=== PATIENT | female | born 1980 | race Caucasian/White ===

== ENCOUNTER 2020-10-30 17:52 | Inpatient (IN) | payer BC, OTHER ==
[~2020-10-30] VITALS: Ht 154.9 cm; Wt 65.9 kg
[~2020-10-30 17:52] MED LIST: CYCL-394 PO; HYDR-3965 PO
[2020-10-30] MEDS ORDERED: normal saline 1000ML IV soln IV ONE (18:20)
[2020-10-30] MEDS ORDERED: acetaminophen 325mg tablet PO STA (18:31)
[2020-10-30 18:45] LABS: BASOPHILS % (AUTO) 0.4 % (0-1); EOSINOPHILS % (AUTO) 0 % (0-6); HEMATOCRIT 39.9 % (35.0-45.0); HEMOGLOBIN 13.4 g/dl (12.0-16.0); LYMPHOCYTES # (AUTO) 0.4 X10'3 (1.1-4.8); LYMPHOCYTES % (AUTO) 3.8 % (21-51); MEAN CORPUSCULAR HEMOGLOBIN 29.9 PG (27.0-31.0); MEAN CORPUSCULAR HGB CONC 33.6 g/dL (33.0-36.5); MEAN CORPUSCULAR VOLUME 88.8 FL (78-98); MEAN PLATELET VOLUME 8.5 FL (7.4-10.4); MONOCYTES # (AUTO) 0.4 X10'3 (0-0.9); MONOCYTES % (AUTO) 4.4 % (2-12); NEUTROPHILS # (AUTO) 9.3 X10'3 (1.8-7.7); NEUTROPHILS % (AUTO) 91.4 % (42-75); PLATELET COUNT 214 X10'3 (140-440); RED BLOOD COUNT 4.49 X10'6 (4.20-5.60); RED CELL DISTRIBUTION WIDTH 13.4 % (11.5-14.5); WHITE BLOOD COUNT 10.2 X10'3 (4.5-11.0)
[2020-10-30] MEDS ORDERED: acetaminophen 325mg tablet PO ONE (18:55)
[2020-10-30] MEDS ORDERED: ketorolac tromethamine 15mg/ml inj. IM ONE (18:55)
[2020-10-30 19:00] LABS: ALANINE AMINOTRANSFERASE 21 U/L (12-78); ALBUMIN 3.6 G/DL (3.4-5.0); ALBUMIN/GLOBULIN RATIO 0.8 (1.1-1.5); ALKALINE PHOSPHATASE 74 IU/L (46-116); ANION GAP 10 (8-16); ASPARTATE AMINO TRANSFERASE 14 U/L (10-37); BILIRUBIN,TOTAL 0.3 MG/DL (0.1-1.0); BLOOD UREA NITROGEN 10 MG/DL (7-18); BUN/CREATININE RATIO 11.8 (6.6-38.0); CALCIUM 8.7 MG/DL (8.5-10.1); CHLORIDE 98 MMOL/L (99-107); CREATININE 0.85 MG/DL (0.40-0.90); GLUCOSE 114 MG/DL (70-104); MAGNESIUM 1.7 MG/DL (1.5-2.4); POTASSIUM 3.5 MMOL/L (3.5-5.1); SODIUM 132 MMOL/L (135-145); TOTAL CARBON DIOXIDE 23.8 MMOL/L (24-32); TOTAL PROTEIN 8.2 G/DL (6.4-8.2); eGFR 74 ML/MIN
[2020-10-30] MEDS ORDERED: CefTRIAXone/D5W-Rocephin 1gm 50 ML IV ONE (19:35)
[2020-10-30 20:23] LABS: CLARITY,URINE CLEAR (Clear); COLOR,URINE YELLOW (Yellow); GLUCOSE, URINE NEGATIVE (Neg); KETONES,URINE NEGATIVE (Neg); LEUKOCYTE ESTERASE ,URINE NEGATIVE (Neg); NITRITES, URINE NEGATIVE (Neg); OCCULT BLOOD,URINE TRACE-INTACT (Neg); PROTEIN,URINE NEGATIVE (Neg); UROBILINOGEN,URINE 0.2 E.U/dL (0.2-1.0)
[2020-10-30 20:24] LABS: URINE HCG NEGATIVE (NEG)
[2020-10-30 20:28] LABS: UA COLLECTION TYPE CLN CATCH MIDSTREAM
[2020-10-30 20:29] LABS: BACTERIA,URINE FEW /HPF (Neg); RBC,URINE 0-2 /HPF (0-2); SQUAMOUS EPITHELIAL CELL,UR MODERATE /LPF (FEW); WBC,URINE 0-4 /HPF (0-4)
--- NOTE | 2020-10-30 20:33 | NUR ---
REPORTS MISSING DOSES OF HOME ANTIBIOTIC FOR UTI
--- NOTE | 2020-10-30 21:39 | NUR ---
TOLERATED CHICKEN BROTH WITHOUT VOMITING
[2020-10-30] MEDS: normal saline 1000ml 1,000 ML IV SCH (22:10)
[2020-10-30] MEDS ORDERED: magnesium 2GM in 50ml NS 50 ML IV PRN (22:10)
[2020-10-30] MEDS ORDERED: ondansetron/PF 4mg/2ml inj IV PRN (22:10)
[2020-10-30] MEDS ORDERED: magnesium 4gm in 100ml NS 100 ML IV PRN (22:10)
[2020-10-30] MEDS ORDERED: potassium Cl 20 mEq SR tablet PO PRN ×2 (22:10)
[2020-10-30] MEDS ORDERED: potassium Cl 40MEQ/1/2NS 520ml 520 ML IV PRN ×2 (22:10)
[2020-10-30] MEDS ORDERED: magnesium Cl slow-release 64mg tablet PO PRN (22:10)
[2020-10-30] MEDS ORDERED: NO HOME MEDS (22:37)
--- NOTE | 2020-10-30 23:55 | NUR ---
Patient in room ED 12. I have received report from NEHEMIAH Arrieta and had the opportunity to ask questions and assume patient care.
[2020-10-31] VITALS (8 sets, daily range): BP systolic 96–128; BP diastolic 56–83
[2020-10-31] MEDS: acetaminophen 325mg tablet PO PRN ×3 (00:47→22:06)
--- NOTE | 2020-10-31 01:23 | NUR ---
at pt bedside
[2020-10-31] MEDS ORDERED: Melatonin 3mg tablet PO ONE (02:35)
[2020-10-31] MEDS ORDERED: HYDROcodone/acetaminophen 5mg/325mg tablet PO ONE ×2 (02:35→03:00)
[2020-10-31] MEDS: normal saline 1000ml 1,000 ML IV SCH ×3 (04:50→14:47)
[2020-10-31 05:57] LABS: BASOPHILS % (AUTO) 0.2 % (0-1); EOSINOPHILS % (AUTO) 0.1 % (0-6); HEMOGLOBIN 11.8 g/dl (12.0-16.0); LYMPHOCYTES # (AUTO) 0.6 X10'3 (1.1-4.8); LYMPHOCYTES % (AUTO) 13.6 % (21-51); MEAN CORPUSCULAR HEMOGLOBIN 30.1 PG (27.0-31.0); MEAN CORPUSCULAR HGB CONC 33.6 g/dL (33.0-36.5); MEAN CORPUSCULAR VOLUME 89.4 FL (78-98); MEAN PLATELET VOLUME 8.9 FL (7.4-10.4); MONOCYTES # (AUTO) 0.2 X10'3 (0-0.9); MONOCYTES % (AUTO) 5.5 % (2-12); NEUTROPHILS # (AUTO) 3.6 X10'3 (1.8-7.7); NEUTROPHILS % (AUTO) 80.6 % (42-75); PLATELET COUNT 177 X10'3 (140-440); RED BLOOD COUNT 3.91 X10'6 (4.20-5.60); RED CELL DISTRIBUTION WIDTH 13.1 % (11.5-14.5); WHITE BLOOD COUNT 4.5 X10'3 (4.5-11.0)
--- NOTE | 2020-10-31 06:03 | NUR ---
Problems reprioritized. Patient report given, questions answered & plan of care reviewed with NEHEMIAH Curry.
--- NOTE | 2020-10-31 06:05 | NUR ---
Patient in room PCU 3026. I have received report from Becky CERNA and had the opportunity to ask questions and assume patient care.
--- NOTE | 2020-10-31 06:12 | NUR ---
Patient in room PCU 3026. I have received report from Becky CERNA and had the opportunity to ask questions and assume patient care with Patricio CERNA.
[2020-10-31 06:14] LABS: ALBUMIN 2.7 G/DL (3.4-5.0); ANION GAP 7 (8-16); BLOOD UREA NITROGEN 8 MG/DL (7-18); BUN/CREATININE RATIO 11.9 (6.6-38.0); CALCIUM 7.5 MG/DL (8.5-10.1); CHLORIDE 107 MMOL/L (99-107); CREATININE 0.67 MG/DL (0.40-0.90); GLUCOSE 97 MG/DL (70-104); MAGNESIUM 1.9 MG/DL (1.5-2.4); POTASSIUM 3.5 MMOL/L (3.5-5.1); SODIUM 136 MMOL/L (135-145); TOTAL CARBON DIOXIDE 21.8 MMOL/L (24-32); eGFR > 90 ML/MIN
[2020-10-31] MEDS ORDERED: HYDROcodone/acetaminophen 10/325mg tab PO ONE (06:15)
[2020-10-31] MEDS: CefTRIAXone/D5W-Rocephin 1gm 50 ML IV SCH (07:18)
[2020-10-31] MEDS: K and/or MAG REPLACEMENT MC SCH ×2 (08:00→20:00)
--- NOTE | 2020-10-31 13:22 | NUR ---
Doctor paged PAGER ID: [phone] MESSAGE: Re: Amita Orona, [id number]. Patient is complaining of headache. May we have an order for something for headache? [place]? Tylenol? Thank you. Nidia CERNA PCU [id number]
--- NOTE | 2020-10-31 14:36 | NUR ---
PAGER ID: [phone] MESSAGE: Re: Amita Orona. Room: 302. Pt complaining of headache. Can I put order in for [place] 10 PRN q6hrs? -Patricio [facility] #[id number] -Dr. Palomares paged concerning Pt's pain pain control
[2020-10-31] MEDS ORDERED: traMADol 50MG tablet PO PRN (14:40)
--- NOTE | 2020-10-31 18:00 | NUR ---
[place] documentation: I have reviewed and agree with all interventions, assessments performed and documented by Nidia Durand RN.
--- NOTE | 2020-10-31 18:00 | NUR ---
Patient in room PCU 3026. I have received report from Nidia CERNA and had the opportunity to ask questions and assume patient care.
--- NOTE | 2020-10-31 18:25 | NUR ---
Problems reprioritized. Patient report given, questions answered & plan of care reviewed with Tamia CERNA.
[2020-10-31] MEDS: lactobacillus rhamnosus 10,000 MMU CELLS/CAPSULE PO SCH (20:00)
[2020-10-31] MEDS ORDERED: morphine 2 MG/ML inj. syringe IV PRN (21:25)
[2020-10-31] MEDS ORDERED: acetaminophen 325mg tablet PO PRN (21:30)
--- NOTE | 2020-10-31 21:42 | NUR ---
MD NOTIFIED (BARGAN) REGARDING PAIN MEDICATION FOR PATIENT (CURRENTLY EXPERIENCING HEADACHE), PER MD TYLENOL AND MORPHINE ORDERED PRN.
[2020-11-01] MEDS: normal saline 1000ml 1,000 ML IV SCH ×3 (00:50→10:37)
[2020-11-01 02:00] VITALS: BP 107/67
[2020-11-01] MEDS: acetaminophen 325mg tablet PO PRN (03:53)
[2020-11-01 04:04] LABS: BASOPHILS % (AUTO) 0.4 % (0-1); EOSINOPHILS % (AUTO) 0.4 % (0-6); HEMATOCRIT 36.3 % (35.0-45.0); HEMOGLOBIN 12.2 g/dl (12.0-16.0); LYMPHOCYTES # (AUTO) 1.1 X10'3 (1.1-4.8); MEAN CORPUSCULAR HGB CONC 33.7 g/dL (33.0-36.5); MEAN PLATELET VOLUME 8.7 FL (7.4-10.4); MONOCYTES # (AUTO) 0.3 X10'3 (0-0.9); MONOCYTES % (AUTO) 7.3 % (2-12); NEUTROPHILS # (AUTO) 2.4 X10'3 (1.8-7.7); NEUTROPHILS % (AUTO) 62.9 % (42-75); PLATELET COUNT 185 X10'3 (140-440); RED BLOOD COUNT 4.07 X10'6 (4.20-5.60); RED CELL DISTRIBUTION WIDTH 12.9 % (11.5-14.5); WHITE BLOOD COUNT 3.8 X10'3 (4.5-11.0)
[2020-11-01 04:30] LABS: ALBUMIN 2.9 G/DL (3.4-5.0); ANION GAP 8 (8-16); BLOOD UREA NITROGEN 5 MG/DL (7-18); BUN/CREATININE RATIO 9.4 (6.6-38.0); CALCIUM 7.8 MG/DL (8.5-10.1); CHLORIDE 108 MMOL/L (99-107); CREATININE 0.53 MG/DL (0.40-0.90); GLUCOSE 89 MG/DL (70-104); MAGNESIUM 1.8 MG/DL (1.5-2.4); POTASSIUM 3.5 MMOL/L (3.5-5.1); SODIUM 140 MMOL/L (135-145); TOTAL CARBON DIOXIDE 23.9 MMOL/L (24-32); eGFR > 90 ML/MIN
--- NOTE | 2020-11-01 05:15 | NUR ---
Patients physical assessment completed with Student Nurse Juana, I agree with all findings.
--- NOTE | 2020-11-01 06:01 | NUR ---
Problems reprioritized. Patient report given, questions answered & plan of care reviewed with Molly CERNA.
--- NOTE | 2020-11-01 06:13 | NUR ---
Patient in room PCU 3026. I have received report from NEHEMIAH Cantrell and had the opportunity to ask questions and assume patient care.
[2020-11-01 06:50] VITALS: BP 116/79
[2020-11-01 07:00] VITALS: BP 117/63
[2020-11-01] MEDS: lactobacillus rhamnosus 10,000 MMU CELLS/CAPSULE PO SCH (07:46)
[2020-11-01] MEDS: CefTRIAXone/D5W-Rocephin 1gm 50 ML IV SCH (07:46)
--- NOTE | 2020-11-01 08:04 | NUR ---
Paged Dr. Palomares: Jamarcus Rutherford rm [id number] c/o constipation. last bm 10/29. reports usual pattern of 1 or more daily. May patient have Colace? Molly [phone]
--- NOTE | 2020-11-01 10:04 | NUR ---
Dr. Palomares at patients bedside with Nurse MD neri New order for Colace 1xdaily to help with constipation. Will continue to monitor.
--- NOTE | 2020-11-01 10:22 | NUR ---
Paged Dr. Palomares: Yeyo,[id number] pt worries infection may be d/t unretrieved tampon. LMP ended 7 days ago. States feeling of "prolapse" in the perineal region. External exam= hemorrhoids/anal fissures 1 in the area of concern. Molly [phone]
[2020-11-01] MEDS ORDERED: docusate sod 100mg capsule PO ONE (10:25)
[2020-11-01] MEDS ORDERED: AMOX-422 PO (10:47)
--- NOTE | 2020-11-01 11:30 | NUR ---
Re previous note, Dr. Palomares responded that if the patient blood cultures are clear, patient may discharge. No new orders
--- NOTE | 2020-11-01 12:41 | NUR ---
Paged Dr Palomares: Linda Herbert rm [id number]. Blood culture = no growth/1 day. Would you like to discharge patient today or continue to monitor for the duration of the culture? Thank you. Molly [phone]
--- NOTE | 2020-11-01 14:27 | NUR ---
Patient stable for discharge per MD orders. Medication orders transmitted to [facility] pharmacy on [address] in [place]. All discharge instructions reviewed with the patient. Patient given the opportunity to ask questions. All questions answered. PIV discontinued intact. Patient tolerated removal. occupational health technician removed and returned to telemetry office. All belongings gathered and sent with patient. Patient wheeled to lobby via w/c and left via private vehicle, driving herself home per her choice.
[2020-11-02] MEDS ORDERED: docusate sod 100mg capsule PO ONE (08:00)
[2020-11-02] MEDS ORDERED: docusate sod 100mg capsule PO SCH (08:00)
== END 2020-11-01 14:27 | disposition home or self-care (01) | DRG 690 ==
LOC: ER 17:53 → ED HOLD 22:10 → PCU 3S 10-31 00:28
PROVIDERS: ADMIT Internal Medicine; ATTEND Internal Medicine
DX: N39.0 Urinary tract infection, site not specified (principal); E87.1 Hypo-osmolality and hyponatremia; R65.10 Systemic inflammatory response syndrome (SIRS) of non-infectious origin without acute organ dysfunction; I95.9 Hypotension, unspecified; E86.9 Volume depletion, unspecified; Z20.822 Contact with and (suspected) exposure to COVID-19; Z88.8 Allergy status to other drugs, medicaments and biological substances; Z79.899 Other long term (current) drug therapy
CPT/HCPCS: 36415; 71045; 76700; 80048; 80053; 81001; 81025; 83605; 83735; 84145; 85025; 87040; 87081; 87502; 87503; 87635; 93005; 93308; 96361; 96365; 96372; 99285; C9803; G0378; J0696; J1885; J7030